=== PATIENT | male | born 1990 | race African-American/Black ===

== ENCOUNTER 2023-11-30 12:12 | Emergency (ER) | payer SELFPAY ==
[~2023-11-30] VITALS: Ht 188 cm; Wt 111.1 kg
[2023-11-30] MEDS ORDERED: diphenhydrAMINE HCL 25 MG CAPSULE ONE (14:34)
[2023-11-30] MEDS ORDERED: FAMOTIDINE (20 MG) 20 MG TABLET ONE (14:35)
[2023-11-30] MEDS ORDERED: predniSONE 20 MG TABLET ONE (14:35)
[2023-11-30] MEDS: diphenhydrAMINE HCL 25 MG CAPSULE PO ONE (14:39)
[2023-11-30] MEDS: FAMOTIDINE (20 MG) 20 MG TABLET PO ONE (14:39)
[2023-11-30] MEDS: predniSONE 50 MG TABLET PO ONE (14:40)
[2023-11-30] MEDS ORDERED: PRED50TA PO (14:43)
[2023-11-30 15:11] VITALS: BP 135/89; TEMP 98; O2SAT 98
== END 2023-11-30 15:11 | disposition home or self-care (01) ==
LOC: ER 12:43
DX: R21 Rash and other nonspecific skin eruption (principal)
CPT/HCPCS: 99284; Q0163; J7512

== ENCOUNTER 2025-08-31 08:47 | Emergency (ER) | payer OTHER ==
[~2025-08-31] VITALS: Ht 188 cm; Wt 108.9 kg
[~2025-08-31 08:47] MED LIST: PRED50TA PO
[2025-08-31 09:40] LABS: RED BLOOD CELL COUNT(AUTO) 4.06 MIL/uL (4.5-6.0); RED CELL DISTRIBUTION WIDTH 13.5 % (11.5-15.0); WHITE BLOOD COUNT (AUTO) 6.4 K/uL (4.3-11.0)
[2025-08-31 09:44] LABS: PLATELET COUNT (AUTO) 121 K/uL (150-450)
[2025-08-31 09:48] LABS: CALCIUM, SERUM 8.4 mg/dL (8.5-10.1); CREATININE 1.2 mg/dL (0.6-1.3); SODIUM SERUM 136.0 mmol/L (136-145); UREA NITROGEN, BLOOD 13.0 mg/dL (7-18)
[2025-08-31 09:52] LABS: INR 1.2 (0.91-1.10)
[2025-08-31 10:00] VITALS: BP 161/87; TEMP 98; O2SAT 98
[2025-08-31] MEDS ORDERED: ENOXAPARIN SODIUM 80 MG/0.8 ML DISP.SYRIN SQ ONE ×2 (10:04→10:30)
[2025-08-31] MEDS: ENOXAPARIN SODIUM 100 MG/ML DISP.SYRIN SQ ONE (10:08)
== END 2025-08-31 11:40 | disposition home or self-care (01) ==
LOC: ER 08:55
DX: I82.411 Acute embolism and thrombosis of right femoral vein (principal); D69.6 Thrombocytopenia, unspecified; Z79.52 Long term (current) use of systemic steroids; Z86.718 Personal history of other venous thrombosis and embolism; Z87.39 Personal history of other diseases of the musculoskeletal system and connective tissue; Z60.2 Problems related to living alone
CPT/HCPCS: 99285; 93971; 96372; 85025; 80048; 85610; 36415; J1650